=== PATIENT | male | born 1940 | race Caucasian/White ===

== ENCOUNTER 2017-05-28 20:21 | Inpatient (IN) ==
[2017-05-28 22:33] VITALS: BP 159/80
[2017-05-28] MEDS ORDERED: Naloxone 0.4 MG/ML INJ ONE ×2 (22:34→22:40)
[2017-05-28] MEDS ORDERED: 0.9 % Sodium Chloride w KCl 20 MEQ/1,000 ML MLS IVC ONE (22:42)
[2017-05-28] MEDS ORDERED: Naloxone 0.4 MG/ML INJ IVP PRN (23:08)
[2017-05-28] MEDS ORDERED: Ondansetron 4 MG/2 ML VIAL IVP PRN (23:08)
[2017-05-28] MEDS ORDERED: Acetaminophen 325 MG TABLET PO PRN (23:08)
[2017-05-28] MEDS ORDERED: 0.9 % Sodium Chloride w KCl 20 MEQ/1,000 ML MLS IVC SCH (23:15)
[2017-05-28] MEDS ORDERED: Acetaminophen 650 MG RECTAL SUPP RC PRN (23:27)
--- NOTE | 2017-05-28 23:41 | Internal Med History&Physical ---
<Krishna Underwood - Last Filed: 05/29/17 03:34> Date of Encounter: 05/29/17 Time of Encounter: 23:37 Assessment and Plan (1) Severe sepsis Current visit: Yes Status: Acute 77 M presents AMS hx of CAD, VT x2, CVA, CKD, ssystolic CHF with EF 20% tachycardic, leukocytosis, tacypneic Source: UTI, decubitus ulcer Lactic acidosis w/ metabolic alkalosis and anion gap metabolic acidosis DNR -CC Plan: IVF-given 2L at [facility] will bolus additional 1L with 20meq potassium and start on maintenance IVF 100cc/hr (poor EF, patient may not tolerate more plus BP stable). Vancomycin and zosyn blood cultures pending: descalate antibiotics accordingly. Lactic acid x2 repeat ABG CBC, BMP head of bed elevated High risk of mortality with sepsis and metabolic alkalosis. (2) Metabolic alkalosis Current visit: Yes Status: Acute Patient has metabolic alkalosis with anion gap metabolic acidosis Metabolic alkalosis secondary to contraction alkalosis from usage of Lasix 80 mg twice a day with metolazone and those and oral intake in the last 24-48 hours. Patient is severely dehydrated. Anion gap metabolic acidosis secondary to diabetic ketoacidosis, renal failure, poor oral intake with elevated, and I am give 22, elevated beta hydroxybutyric acid. Plan: Aggressive fluid resuscitation IV insulin q2H BMP: monitor and replace electrolytes. (3) Metabolic encephalopathy Current visit: Yes Status: Acute 2nd to dehydration, hyperglycemia, Sepsis metabolic alkalosis with anion gap metabolic acidosis Plan: IVF IV insulin Q1H glucose antibiotics (4) KIARA (acute kidney injury) Current visit: Yes Status: Acute Secondary to dehydration, contraction alkalosis, sepsis Scr 4.6 Baseline Scr 1.8-2.1 Plan: IV fluids, antibiotics Strict I's and O's Branch catheter Avoid NSAIDs and contrast. (5) Elevated troponin Current visit: Yes Status: Acute Patient has history of coronary disease and severe systolic CHF with LVEF of 20% . Last year he underwent left heart catheter and was found to have three- vessel disease but elected to forego CABG for medical management. Currently patient mental status is altered. Furthermore he has hematuria. 2nd to demand ischmeia from sepsis and dehydration Plan: We will trend troponin Cardiac telemetry Hold home medications (6) Systolic heart failure Current visit: Yes Status: Chronic Qualifiers: Heart failure chronicity: chronic Qualified Code(s): I50.22 - Chronic systolic (congestive) heart failure (7) Hematuria Current visit: Yes Status: Acute patient presents with gross hematuria hgb stable 10.0 Plan: branch catheter monitor h/h d/c aspirin and palvix Qualifiers: Hematuria type: gross Qualified Code(s): R31.0 - Gross hematuria (8) Hypokalemia Current visit: Yes Status: Resolved Secondary to contraction alkalosis, metabolic acidosis Plan: Monitor aggressively and replace (9) DVT prophylaxis Current visit: Yes Status: Acute We will forego medical DVT prophylaxis due to hematuria EPCD (10) Goals of care, counseling/discussion Current visit: Yes Status: Acute DNR-CC Patient has DNR CC documentation. Confirmed with family. Internal Medicine - H&P: HPI Chief complaint: AMS Admitted From: Intrahospital Transfer Plans for Post Hospital Care: Hospice - Home History of present illness: Mr. Ha is a 77 year old male from [facility] emergency department with chief complaint of altered mental status. On arrival to [facility] patient is extremely somnolent, lethargic and opens his eyes to stimulation, has yuliana hematuria (has branch from [facility]), hypertensive, appears severely dehydrated. At [facility] patient is noted to be awake and alert. Patient was found to have a glucose of greater than 500, and metabolic alkalosis with anion gap metabolic acidosis, lactic acidosis, hypokalemia, urosepsis. CT head negative. Patient is DNR-CC. He was given 2 L normal saline, Zosyn, IV insulin and potassium at [facility]. EMS noted upon transfer to [facility] he became unresponsive. Patient's states that for the past 2-3 days he has been more somnolent, with decreased oral intake and he has had a spike in his glucose levels up to 500. Furthermore patient on May 23 was prescribed metalazone in this dictation to being on 80 mg of Lasix twice a day. Patient's states that he had increased urination thereafter. Patient has a history of CHF, diabetes, COPD, coronary artery disease with 2 prior myocardial infarctions, and CVA (chronic left sided weakness). Past Med Surg Social Fam HX - Past Medical History Medical history: CHF, COPD, coronary artery disease, CVA, diabetes, hyperlipidemia, hypertension, myocardial infarction, renal disease Psychiatric history: no psych history - Past Surgical History Surgical History: non-contributory - Social History Smoking Status: Former smoker Smokeless Tobacco Status: No Alcohol use: none Drug use: none - Family History Mother Adopted: No Family Member Ethnicity: Non- Living Status: Hx Family Cancer: Yes (unknown) Father Adopted: No Family Member Ethnicity: Non- Living Status: Internal Medicine - H&P: Meds Glimepiride [Amaryl] 2 mg PO 0800 06/15/16 [History] Meclizine HCl [Verticalm] 25 mg PO TID PRN 06/15/16 [History] Aspirin Enteric Coated [Aspirin EC] 325 mg PO DAILY tablet. 06/18/16 [Rx] Clopidogrel [Plavix] 75 mg PO DAILY #30 tablet 06/18/16 [Rx] Isosorbide MONOnitrate (24 HR) [Imdur] 30 mg PO DAILY #30 tab.er.24h 06/18/16 [ Rx] Atorvastatin [Lipitor] 40 mg PO HS 09/07/16 [History] Docusate Sodium [Dok] 100 mg PO TID PRN 09/07/16 [History] Ferrous Sulfate [Iron] 325 mg PO DAILY 09/07/16 [History] Metoprolol Tartrate [Lopressor] 75 mg PO BID 09/07/16 [History] Nitroglycerin [Nitrostat] 0.4 mg SL Q5M PRN 09/07/16 [History] Potassium Chloride [Klor-Con Sprinkle] 8 meq PO DAILY 09/07/16 [History] Furosemide [Lasix] 40 mg PO BID 30 Days 09/10/16 [Rx] Ipratropium/Albuterol Neb [Duoneb] 3 ml IH [id number] PRN 30 Days 09/10/16 [Rx] Allergies levofloxacin [From Levaquin] Allergy (Verified 06/15/16 09:19) Rash ROS unobtainable: due to mental status All Systems PM: A 10-system review of systems was performed and is negative for pertinent findings except as documented above in the HPI. - Constitutional Vitals: Temp Pulse Resp BP Pulse Ox 99.7 F H 106 24 159/80 95 05/28/17 22:32 05/28/17 22:32 05/28/17 22:32 05/28/17 22:32 05/28/17 22:32 - Other Additional findings: General: Extremely somnolent, opens eyes to stimulation, across to pain. HEENT: Head atraumatic, normocephalic, PERRLA, absent nuchal rigidity, absent Lymphadenopathy, severely dry mucous membranes Heart: Sinus tachycardia without murmur Lungs: Clear to auscultation anteriorly Abdomen: Soft nontender, nondistended positive bowel sounds Extremities: 2+ bilateral pitting edema, Neuro: Bilateral upper plantar reflex with more prominence on the left. Other neuro exam not able to be completed due to patient's mental status. Patient does not follow commands Skin: 3 stage II decubitus ulcers on the coccyx, left and right buttock, bleeding. No rashes Genitourinary: No external trauma, Branch catheter with yuliana hematuria Vascular: Pedal and radial pulses 2 out of 4 Internal Med - H&P Results - Labs CBC & Chem 7: 05/29/17 00:58 05/29/17 00:58 <Jose Armando Singh - Last Filed: 05/29/17 04:20> Date of Encounter: 05/29/17 Internal Medicine - H&P: HPI History of present illness: Mr. Ha is a 77 year old male All Systems PM: A 10-system review of systems was performed and is negative for pertinent findings except as documented above in the HPI. - Constitutional Vitals: Temp Pulse Resp BP Pulse Ox 99.7 F H 106 24 159/80 95 05/28/17 22:32 05/28/17 22:32 05/28/17 22:32 05/28/17 22:32 05/28/17 22:32 Internal Med - H&P Results - Labs CBC & Chem 7: 05/29/17 00:58 05/29/17 00:58 Labs: Short CBC 05/29/17 Range/Units 00:58 WBC 16.9 H (4.3-11.1) K/mcL Hgb 9.5 L (12.9-16.9) g/dL Hct 27.6 L (37.5-50.1) % Plt Count 283 (140-400) K/mcL Neutrophils # 14.7 H (1.6-8.9) K/mcL BMP 05/29/17 00:58 Sodium 132 L Potassium 2.1 L* Chloride 92 L Carbon Dioxide 27 BUN 70 H Creatinine 3.86 H Glucose 410 H Calcium 8.9 Cardiac Enzymes 05/29/17 Range/Units 00:58 Troponin I 0.26 H* (0-0.03) ng/mL Liver Function 05/29/17 Range/Units 00:58 Total Bilirubin 0.5 (0.2-1.2) mg/dL AST 29 (5-34) Units/L ALT 34 (0-55) Units/L Alkaline Phosphatase 114 (38-126) Units/L Albumin 2.4 L (3.5-5.0) g/dL - ABG Interpretation ABG results: 05/28/17 22:43 ABG pH 7.54 H ABG pCO2 34 L ABG pO2 63 L ABG HCO3 29.1 H ABG Total CO2 30.1 H ABG O2 Saturation 94 L ABG Base Excess 6.3 H - Attending Attestation I examined this patient and my medical decision-making was reviewed with the Resident Physician, Dr. Krishna Underwood. I agree with the documented findings, disposition and treatment plan as described except to the extent set forth below. I have independently obtained history and examined the patient and my findings are summarized below: Patient with sepsis secondary to UTI, profound metabolic abnormalities, hyperglycemia, metabolic alkalosis and hypokalemia, metabolic encephalopathy, history of CAD, triple-vessel disease on medical management and recurrent CVA, bedbound, here for further workup and treatment. Plan: Continue with IV fluids, IV antibiotics, electrolyte repletion. Follow- up cultures and sensitivities. IV insulin for hyperglycemia. Monitor blood glucose fingerstick every hour. Prognosis is extremely grim. He has a high mortality rate. I explained this to the family. They confirmed the patient is to be DNR.
[2017-05-28] MEDS ORDERED: Vancomycin 2,000 MG in D5% in Water 250 ML IVPB SCH (23:45)
--- NOTE | 2017-05-28 23:49 | Event Note ---
Date of Encounter: 05/28/17 Time of Encounter: 10:00 I examined this patient and my medical decision-making was reviewed with the Resident Physician, Dr. Krishna Parrish. I agree with the documented findings, disposition and treatment plan as described except to the extent set forth below. I have independently obtained history and examined the patient and my findings are summarized below: Patient was sent from [facility] where he presented with weakness. On my exam he is nonverbal difficult to arouse but opens eyes and tracks with his gaze when stimulated by sternal rub. Heart is tachycardic with regular S1- S2, lungs are clear with shallow and rapid breath sounds; abdomen is soft and nontender. There is a [place] catheter present emergent from the urethral meatus draining bloody urine. Laboratory data reveals hyponatremia with sodium of 120 weight, hyperkalemia with potassium of 5.9, initial glucose was 609. VBG reveals an alcohol on a pH with normal CO2. Plan: Patient was unresponsive and therefore it was admitted 2 doses of 0.4 mg of Narcan suspecting possible opiate overdose. He did not respond to Narcan which sits just that he does not have opiate toxicity. His mental status improved slightly after sternal rubbing. She is profoundly dehydrated however his blood pressure still maintained within normal range. We will treat him with aggressive IV fluid hydration. He has severe sepsis/septic shock and therefore we will treat him with IV fluids , IV antibiotics with ceftriaxone 2 g IV every 24 hours and will follow-up blood cultures and sensitivities as well as urine culture. For uncontrolled diabetes with hyperglycemia with we will start IV insulin. The high probability of emergent and significant clinical decompensation with potential impairment of organ function including cardiovascular system required my full attention and presence at the bedside. I spent 40 minutes of critical care time which involved decision making of high complexity to assess, manipulate, and support vital organ system, in order to prevent further life threatening deterioration of the patient's condition. The critical care time was spent in the patient's room and/or its close proximity and involved obtaining updated history and examining the patient, reviewing EKGs, imaging studies and laboratory data, ordering medications and laboratory studies, and reevaluating for clinical response. The time took to perform any procedures was not included in the critical care time quoted above and is billed separately.
[2017-05-29] MEDS ORDERED: *HR* Dextrose 50 % in Water (Syg) 50 ML SYRINGE IVP PRN (00:18)
[2017-05-29] MEDS ORDERED: Insulin Human Regular 100 UNIT in 0.9 % Sodium Chloride 100 ML IVC SCH (00:30)
[2017-05-29 00:52] LABS: ABG Base Excess 6.3 mEq/L (-2.0 to 3.0); ABG HCO3 29.1 mEQ/L (21-27); ABG Oxygen Saturation 94 % (95-98); ABG PCO2 34 mmHg (35-45); ABG PH 7.54 pH Units (7.32-7.45); ABG PO2 63 mmHg (85-104); ABG TCO2 30.1 mEq/L (20-26)
[2017-05-29 00:54] LABS: Blood Gas FiO2 21 %
[2017-05-29 01:12] LABS: Basophils % 0.1 %; Eosinophils % 0.1 %; Hematocrit 27.6 % (37.5-50.1); Hemoglobin 9.5 g/dL (12.9-16.9); Immature Granulocytes % 1.1 % (0-4); Lymphocytes # 0.8 K/mcL (0.6-4.6); Lymphocytes % 4.9 %; Mean Corpuscular HGB Conc 34.4 g/dL (31.6-35.5); Mean Corpuscular Hemoglobin 29.4 pg (28.0-33.3); Mean Corpuscular Volume 85.4 fL (83.0-100.0); Monocytes # 1.1 K/mcL (0.0-1.3); Monocytes % 6.8 %; Neutrophils # 14.7 K/mcL (1.6-8.9); Platelet Count 283 K/mcL (140-400); Red Blood Count 3.23 M/mcL (4.19-5.50); Red Cell Distribution Width 14.5 % (11.5-14.5)
[2017-05-29 01:18] LABS: Magnesium 2.1 mg/dL (1.6-2.6)
[2017-05-29 01:19] LABS: Albumin 2.4 g/dL (3.5-5.0); Albumin/Globulin Ratio 0.5 (1.1-2.2); Bilirubin,Total 0.5 mg/dL (0.2-1.2); Calcium 8.9 mg/dL (8.6-10.8); Globulin 5.2 g/dL (2.4-3.5); Total Protein 7.6 g/dL (6.0-8.3)
[2017-05-29 01:22] LABS: Potassium 2.1 mEq/L (3.5-4.5)
[2017-05-29] MEDS ORDERED: Potassium Chloride 40 MEQ, Lidocaine 1% 2 ML in D5% in Water 500 ML IVPB ONE (01:26)
[2017-05-29] MEDS ORDERED: Vancomycin 2,000 MG in D5% in Water 500 ML IVPB ONE (03:00)
[2017-05-29] MEDS ORDERED: Aminoglycoside Consult 1 EACH MC ONE (03:12)
--- NOTE | 2017-05-29 03:56 | Death Note ---
<Krishna Underwood - Last Filed: 05/29/17 04:05> Discharge Sum: Summary - Date and Time Date of admission: 05/28/17 22:01 Date of : 05/29/17 Time of : 03:13 - Summary Details: 77 y/o male arrived from [facility] somnolent, lethargic and minimal response to stimuli. Patient had severe sepsis, metabolic alkalosis, anion gap metabolic acidosis 2nd DKA, hyperglycemia, hypokalemia. Patient's vitals were stable with BP in systolic 150s and SPO2 >90% on room air. He was aggressively resuscitated with IVF, potassium and started on IV insulin. Patient is DNR-CC. Family, on patient's arrival confirmed this. Within couple ours of admission repeat chemistry showed worsening hypokalemia. This was most likley due to metabolic acidosis, metabolic alkalosis and administration of IV insulin for treatment of hyperglycemia/DKA. Furthermore, patient had two large bore IVs and more potassium was ordered. At this point, it was brought to the family (patient 's and brother) that it would be very difficult to replace the potassium with the IV access the patient had as the IV access was also being used for IVF, and antibiotics. If potassium was not replaced he was susceptible to cardiac arrythmias, acute respiratory failure. However, to administer potassium at a greater frequency, patient would need central venous access. Family was explained that with continuation of insulin drip, his hyperkalemia would worsen as it had already dropped from 2.8 to 2.1 with potassium replacement. It was futile to continue theraphy which would make his electrolyte derangements worse without any possible intervention of improving his hypokalemia. Another option was to stop treatments such as IV insluin, antibiotics and IVF and make patient comfortable. They acknowledged the situation at hand, and were asked what would the patient want in this condition. Patient's family was told risks of CVC access including bleeding, infection, injury to surrounding structures (lung, carotid artery). Furthermore, they understood there is no guarantee that with placement of CVC and administration of potassium, the patient will recover. Also , due to invasiveness of this procedure, patient would have to have code status changed to [id number]. After our conversation about situation at hand, patient's decided to have CVC placed and Code status changed to [id number]. With Dr. Sinhg and I present in the room patient was prepped for procedue. Time out was called. Patient was drapped in sterile fashion, right IJ vein was located using ultrasound and introducer needle was used to cannulate right IJ with return of dark red blood. Guidewire was easily threaded thorugh the needle without resistance at which time patient started having agonal breaths. The procedure was immediately aborted and family was called into the room. At 3:13AM patient was found to have no pulse and w/o heart sounds and time of was declared. - Additional Data Confirmation of as documented by pronouncing clinician: no pulse, no respirations, no heart sounds Family: at bedside Attending/PCP notified?: Yes Attending physician: Kingsley Amaya MD Was code activated?: No Discharge Sum: Diag - PCOD Probable Cause of : Sepsis Discharge Sum: Prov - Provider Primary care physician: PCP NONE Admitting clinician: Jose Armando Singh Attending physician on admission: Jose Armando Singh Pronouncing clinician: Jose Armando Singh <Jose Armando Singh - Last Filed: 05/29/17 04:30> Discharge Sum: Summary - Date and Time Date of admission: 05/28/17 22:01 - Summary Details: I examined this patient and my medical decision-making was reviewed with the Resident Physician, Dr. Krishna Underwood. I agree with the documented findings, disposition and treatment plan as described except to the extent set forth below. I have independently obtained history and examined the patient and my findings are summarized below: I have personally explained the risks and potential benefits of this procedure to the patient's family. They agreed to proceed with the procedure. Prior to initiating the procedure the patient was obtunded, unresponsive, moving his right arm only in a nonpurposeful manner. He appeared tachipneic, with shallow respirations and Kussmaul breathing. I was present in the room throughout the entire procedure. The patient was prepped and draped in a sterile fashion. The right IJ was cannulated under ultrasound guidance and after the syringe was detached there was return of nonpulsatile dark red blood through the introducer needle. A guidewire was introduced through the needle. At this point the patient started having gasping , agonal breathing. We stopped the procedure and with removed the guidewire and applied pressure over the insertion site. Pulse check was done and found a thready carotid pulses. He continued to have agonal breathing. At that point the procedure was terminated and family was brought into the room. They confirmed once again that the patient did not want any aggressive resuscitation measures. Patient became pulseless and his breathing stopped and was pronounced at 3:13 AM. I offered my condolences and provided emotional support to the patient's and brother. - Additional Data Attending physician: Kingsley Amaya MD Discharge Sum: Prov - Provider Primary care physician: PCP NONE
[2017-05-29] MEDS ORDERED: Famotidine 20 MG/2 ML VIAL IVP SCH (06:00)
[2017-05-29] MEDS ORDERED: Piperacillin/Tazobactam 3.375 GM in D5% in Water (Mini-Bag+) 100 ML IVPB SCH (06:00)
[2017-05-29] MEDS ORDERED: Piperacillin/Tazobactam 2.25 GM in D5% in Water (Mini-Bag+) 100 ML IVPB SCH (08:00)
== END 2017-05-29 03:13 | disposition expired | DRG 871 ==
LOC: 2ANU 22:01
PROVIDERS: ADMIT Internal Medicine; ATTEND Internal Medicine